=== PATIENT | male | born 1960 | race Caucasian/White ===

== ENCOUNTER → 2017-10-06 | Outpatient (CLI) | payer OTHER ==
[~2017-10-06] VITALS: Ht 162.6 cm; Wt 72.6 kg
[~2017-10-06] MED LIST: ARICEPT5 MG PO; Coumadin Daily Dose PO; DOXYCYCLINE HY100 M3 PO; Tylenol Regular Stre PO; VITAMIN B-121000 MC3 PO; Vicodin,Norco 5/325 PO
== END | disposition home or self-care (01) ==
LOC: AMB 09:29
PROC: 0DJ08ZZ Inspection of Upper Intestinal Tract, Via Natural or Artificial Opening Endoscopic (ICD-10-PCS; principal; 2017-10-06)
DX: R13.10 Dysphagia, unspecified (principal); F03.90 Unspecified dementia, unspecified severity, without behavioral disturbance, psychotic disturbance, mood disturbance, and anxiety; Q90.9 Down syndrome, unspecified
CPT/HCPCS: 93005; J7643